=== PATIENT | female | born 1980 | race Caucasian/White ===

== ENCOUNTER 2025-05-19 01:21 | Emergency (ER) | payer MEDICARE, SELFPAY ==
[2025-05-19] VITALS (8 sets, daily range): BP systolic 96–131; BP diastolic 68–92; PULSE 83–113; RESP 18; TEMP 36.4–37.9; O2SAT 95–100; BMI 27.2
--- NOTE | 2025-05-19 01:45 | XR_ITS ---
Examination: CT abdomen and pelvis without contrast. Coronal 3-D reconstructions. Sagittal 2-D reconstructions. Date and time of exam:May 19, 2025, 0315 hours INDICATIONS: Left back and flank pain beginning 3 days ago CTDI: vol (mGy): 6.61 DLP: (mGycm): 362 Technique: Axial images of the abdomen have been obtained, 3 mm slice thickness Intravenous contrast material has not been administered. Low dose protocols were performed. One or more of the following dose reduction techniques were used; automated exposure control, adjustment of the mA and/or KV according to patient size, use of iterative reconstruction technique. Findings: No focal liver or splenic lesions No gallstones No pancreatic or adrenal mass Bilateral renal calculi, the largest right kidney 6 mm Moderate left hydronephrosis, 8 mm mid left ureteral calculus No bowel obstruction No bladder mass IMPRESSION: Moderate left hydronephrosis secondary to 8 mm mid left ureteral calculus
--- NOTE | 2025-05-19 01:46 | EDRME_ITS ---
[facility] Arrival date/time: 05/19/25 01:21 44F with history of drug use presents to ED with several days of L-sided flank pain and dysuria, as well as fevers/chills. Chief Complaint: Back Pain/Injury Vital signs: Vital Signs Temperature 100.2 F 05/19/25 01:35 Pulse Rate 113 H 05/19/25 01:35 Respiratory Rate 18 05/19/25 01:35 Blood Pressure 113/81 05/19/25 01:35 Pulse Oximetry (%) 97 05/19/25 01:35 Oxygen Delivery Method Room Air 05/19/25 01:35
[2025-05-19] MEDS: ONDANSETRON ODT 4 MG TABRAP PO (01:58)
[2025-05-19] MEDS: KETOROLAC INJ 60 MG/2 ML VIAL IM (01:58)
[2025-05-19 02:12] LABS: Lactate (Lactic Acid) 1.7 mMol/L (0.4-2.0)
[2025-05-19 02:20] LABS: Basophils # (Auto) 0.1 Thou/mm3 (0.0-0.2); Basophils % (Auto) 1 % (0-2.5); Eosinophils # (Auto) 0.1 Thou/mm3 (0.0-0.5); Eosinophils % (Auto) 1 % (0-10); Hematocrit 36.2 % (36.0-46.0); Hemoglobin 12.6 g/dL (12.0-16.0); Immature Granulocytes Auto 0.07 Thou/mm3 (0.00-0.00); Lymphocytes # (Auto) 1.2 Thou/mm3 (1.0-4.8); Lymphocytes % (Auto) 10 % (10-50); Mean Corpuscular HGB Conc 34.8 g/dl (31.0-37.0); Mean Corpuscular Hemoglobin 32.4 pg (25.0-35.0); Mean Corpuscular Volume 93 fL (80-100); Monocytes # (Auto) 1.3 Thou/mm3 (0.0-0.8); Monocytes % (Auto) 10 % (0-12); Neutrophils # (Auto) 9.6 Thou/mm3 (1.8-7.7); Neutrophils % (Auto) 78 % (37-80); Nucleated Red Blood Cell # 0.00 Thou/mm3 (0.00-0.00); Nucleated Red Blood Cell % 0 /100 WBC (0); Platelet Count 208 Thou/mm3 (140-440); RDW Standard Deviation 49.7 fL (36.4-46.3); Red Blood Count 3.89 Miln/mm3 (4.00-5.20); White Blood Count 12.2 Thou/mm3 (3.6-11.0)
[2025-05-19 02:40] LABS: Alanine Aminotransferase 11 U/L (10-49); Albumin, Serum 4.2 gm/dL (3.5-5.0); Albumin/Globulin Ratio 1.5 (1.2-2.2); Alkaline Phosphatase 95 U/L (46-116); Anion Gap 7 (7-16); Aspartate Amino Transferase 11 U/L (0-34); BUN/Creatinine Ratio 10 Ratio (12-20); Bilirubin,Total 1.0 mg/dL (0.3-1.2); Blood Urea Nitrogen 11 mg/dL (9-23); Calcium 9.0 mg/dL (8.3-10.6); Calcium (Corrected) 9.0 mg/dL (8.5-10.1); Carbon Dioxide 22.8 mMol/L (20.0-31.0); Chloride 103 mMol/L (98-107); Creatinine (Component) 1.1 mg/dL (0.6-1.3); Estimated Creatinine Clearance 51.9 mL/min (>60); Globulin 2.8 gm/dL (2.3-3.5); Glucose 114 mg/dL (74-106); Lipase 33 U/L (12-53); Osmolality,Calculated 266 (275-295); Potassium 4.4 mMol/L (3.4-5.1); Procalcitonin 0.57 ng/ml (0.0-0.49); Sodium 133 mMol/L (136-145); Total Protein 7.0 gm/dL (5.7-8.2); eGFR > 60 See Note
--- NOTE | 2025-05-19 04:02 | PRELIM_ITS ---
CT abdomen and pelvis without intravenous contrast (axial sections with sagittal and coronal reformats) May 19, 2025 0315 hours Clinical History: L Flank pain; r/o stone No prior study is available for comparison. Findings: There is a 8 x 5 mm obstructing calculus in the left mid ureter (axial images 155/256) causing mild hydroureteronephrosis and periureteric/perinephric fat stranding. There is a nonobstructing calculus in the right lower pole calyx, measuring 8 mm. The urinary bladder is incompletely distended and demonstrates mild wall thickening. The liver, gallbladder, spleen, pancreas and adrenals appear unremarkable on this noncontrast study. No evidence of bowel obstruction. The appendix is not visualized Trace free fluid is seen in the pelvis, likely physiologic .There is a right ovarian follicle, measuring 1 cm. No free air is seen. The osseous structures are unremarkable. The lung bases are clear. Impression: 8 x 5 mm obstructing calculus in the left mid ureter causing mild hydroureteronephrosis. Nonobstructing right renal calculus. Other findings as described above. Report Electronically Signed By: Elmer Trevino 05/19/2025 4:02:05 AM [EST]
[2025-05-19] MEDS: cefTRIAXone/D5w 1gm IV premix 1 GM/50 ML BAG IV (04:48)
--- NOTE | 2025-05-19 06:48 | PD.EDABDPN ---
ED Abdominal Pain RME/HPI General Chief Complaint: Back Pain/Injury Stated complaint: LEFT BACK PAIN RADIATING TO GROIN X3 DAY Time seen by provider: 05/19/25 06:49 Arrival date/time: 05/19/25 01:21 Limitations: no limitations RME / HPI RME / HPI narrative: 05/19/25 01:21 44F with history of drug use presents to ED with several days of L-sided flank pain and dysuria, as well as fevers/chills. DR. ARTHUR MAIN ED EVALUATION: 44 year old female presents to the Emergency Department with complaint of left flank pain today. Associated fever and chills at home. No other symptoms reported at this time. PMHx: Cerebral palsy and she was born premature. Also, history of asthma and she smokes cigarettes. Social Hx: Smokes cigarettes. Related Data Home Medications ?Medication ?Instructions ?Recorded ?Confirmed lorazepam 0.5 mg tablet 0.5 mg PO BID 07/19/20 07/19/20 Allergies Allergy/AdvReac Type Severity Reaction Status Date / Time red dye AdvReac Mild Difficulty Verified 05/19/25 01:23 Breathing Review of Systems Review of Systems Systems Reviewed: All systems reviewed, normal except as documented Past Medical History Past Medical History NEUROLOGIC: Positive Meningitis (Spinal meningitis (dx childhood) ) and Cerebral Palsy RESPIRATORY: Positive Asthma REPRODUCTIVE: Positive Previous Pregnancies MUSCULOSKELETAL: Positive Osteoporosis PSYCHO/SOCIAL: Positive Depression (Narcotic overdose (07/19/20)) Social History SMOKING STATUS: Current some day smoker ED Exam General Limitations: Present no limitations General appearance: Present alert and in distress (in mild pain distress) Head Head exam: Present atraumatic, normocephalic and normal inspection Eye Eye exam: Present normal appearance, PERRL and EOMI ENT ENT exam: Present normal exam, normal oropharynx and mucous membranes moist Neck Neck exam: Present normal inspection, full ROM and trachea midline Chest Chest inspection: Present normal inspection and symmetric chest wall rise Respiratory Respiratory exam: Present normal lung sounds bilaterally Cardiovascular Cardiovascular exam: Present regular rate, normal rhythm and normal heart sounds Abdominal Exam Abdominal exam: Present tenderness (left flank tenderness) and normal bowel sounds Extremities Exam Extremities exam: Present normal inspection and full ROM Back Exam Back exam: Present normal inspection and full ROM Neurological Exam Neurological exam: Present alert, oriented X3 and CN II-XII intact Psychiatric Psychiatric exam: Present normal affect and normal mood Skin Skin exam: Present warm, dry, intact and normal color Course Quality Measures none Orders Category Date Time Status Transfer to another facility [Transfer/Discharge] Stat Discharge 05/19/25 08:[address] abdomen pelvis wo con Stat Exams 05/19/25 01:45 Completed Blood Culture (Lab) Stat Lab 05/19/25 02:04 Received CBC Stat Lab 05/19/25 01:58 Completed CMP [Comprehensive Metabolic Panel] Stat Lab 05/19/25 01:58 Completed HCG Qualitative,Urine Stat Lab 05/19/25 06:21 Completed Lactate (Lactic Acid) Stat Lab 05/19/25 01:58 Completed Lipase Stat Lab 05/19/25 01:58 Completed Procalcitonin Stat Lab 05/19/25 01:58 Completed UA [Urinalysis] Stat Lab 05/19/25 06:21 Completed Urine Culture Stat Lab 05/19/25 06:21 Received HYDROmorphone INJ [Dilaudid Inj] Med 05/19/25 06:53 Discontinued 0.5 mg IVP X1 ONE Ketorolac Inj [Toradol Inj] Med 05/19/25 06:53 Discontinued 15 mg IVP X1 ONE Ketorolac Inj [Toradol Inj] Med 05/19/25 01:45 Discontinued 60 mg IM X1 ONE Ondansetron Inj [Zofran Inj] Med 05/19/25 06:53 Discontinued 4 mg IVP X1 ONE Ondansetron Odt [Zofran Odt] Med 05/19/25 01:45 Discontinued 4 mg PO X1 ONE Sodium Chloride 0.9% 1000 ml [Ns] 1,000 ml Med 05/19/25 04:24 Discontinued IV 999 mls/hr cefTRIAXone/D5w 1gm IV premix [Rocephin/D5w 1gm IV Med 05/19/25 04:25 Discontinued premix] 1 gm in 50 ml IV X1 Vital Signs Vital signs: Vital Signs Temperature 100.2 F 05/19/25 01:35 Pulse Rate 113 H 05/19/25 01:35 Respiratory Rate 18 05/19/25 01:35 Blood Pressure 113/81 05/19/25 01:35 Pulse Oximetry (%) 97 05/19/25 01:35 Oxygen Delivery Method Room Air 05/19/25 01:35 PROCEDURES: Smoking Cessation Time Spent Discussing Smoking Cessation w/Patient (min): 3 Patient Acknowledges Need for Cessation: Yes Additional Comments: The patient was counseled as to the multiple risks to their health from continued use of tobacco products. 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 The patient states they understand these risks, and also understand the options and resources available to them to help them stop smoking. Nicotine replacement therapy, local hotlines, and local resources were discussed as viable options for helping them stop their tobacco use. The total time spent counseling the patient regarding tobacco cessation was 3 minutes. Abdominal Pain MDM MDM Narrative MDM Narrative:: I, Ana Maria Gupta, am scribing for and in the presence of Dr. Arthur. Patient data External records reviewed:: [facility] previous records Clinical information provided by:: patient and spouse Social determinants that could affect healthcare access:: other (specify) (smokes cigarettes) Patient has the following chronic illnesses:: Cerebral palsy and she was born premature. Also, history of asthma and she smokes cigarettes. How is presenting disease/condition affected by chronic disease/condition?: uneffected by Evaluation data The following diagnostics were reviewed and interpreted by me:: lab results and radiology exam(s) Lab and/or radiology exams considered but not ordered:: none Interpretation Summary: [facility] [address] [place] [address] [employer] Preliminary Report Draft Patient: SARAY SMITH. Record#: [id number] Birthdate: 1980 Age/Sex: 44 / F Location: [facility] Attending Dr: Ordering Physician: Date of Service: Procedure(s): Accession Number(s): cc: ~ CT abdomen and pelvis without intravenous contrast (axial sections with sagittal and coronal reformats) May 19, 2025 0315 hours Clinical History: L Flank pain; r/o stone No prior study is available for comparison. Findings: There is a 8 x 5 mm obstructing calculus in the left mid ureter (axial images 155/256) causing mild hydroureteronephrosis and periureteric/perinephric fat stranding. There is a nonobstructing calculus in the right lower pole calyx, measuring 8 mm. The urinary bladder is incompletely distended and demonstrates mild wall thickening. The liver, gallbladder, spleen, pancreas and adrenals appear unremarkable on this noncontrast study. No evidence of bowel obstruction. The appendix is not visualized Trace free fluid is seen in the pelvis, likely physiologic .There is a right ovarian follicle, measuring 1 cm. No free air is seen. The osseous structures are unremarkable. The lung bases are clear. Impression: 8 x 5 mm obstructing calculus in the left mid ureter causing mild hydroureteronephrosis. Nonobstructing right renal calculus. Other findings as described above. Report Electronically Signed By: Elmer Valentinhgal 05/19/2025 4:02:05 AM [EST] Procedure(s): CT abdomen pelvis [facility] Accession Number(s): [id number] cc: Perry Goodrich MD; Jesus Li MD; Jaiden Kimble PA-C~ Examination: CT abdomen and pelvis without contrast. Coronal 3-D reconstructions. Sagittal 2-D reconstructions. Date and time of exam:May 19, 2025, 0315 hours INDICATIONS: Left back and flank pain beginning 3 days ago CTDI: vol (mGy): 6.61 DLP: (mGycm): 362 Technique: Axial images of the abdomen have been obtained, 3 mm slice thickness Intravenous contrast material has not been administered. Low dose protocols were performed. One or more of the following dose reduction techniques were used; automated exposure control, adjustment of the mA and/or KV according to patient size, use of iterative reconstruction technique. Findings: No focal liver or splenic lesions No gallstones No pancreatic or adrenal mass Bilateral renal calculi, the largest right kidney 6 mm Moderate left hydronephrosis, 8 mm mid left ureteral calculus No bowel obstruction No bladder mass IMPRESSION: Moderate left hydronephrosis secondary to 8 mm mid left ureteral calculus Dictated By: Perry Goodrich MD Medications / Prescriptions Medications or Prescriptions considered but not ordered:: none Medication administrations:: Medication Administration History Discontinued Medications Hydromorphone HCl (Hydromorphone Inj 2 Mg/Ml Vial) 0.5 mg IVP X1 ONE Stop: 05/19/25 06:54 Last Admin: 05/19/25 08:13 Dose: 0.5 mg Documented By: ER Sodium Chloride (Ns) 1,000 mls @ 999 mls/hr IV .Q1H1M ONE Stop: 05/19/25 05:24 Last Admin: 05/19/25 06:26 Dose: Not Given Documented By: SF Non-Admin Reason: Cancelled by Provider Ceftriaxone Sodium/Dextrose (Rocephin/D5w 1gm Iv Premix) 1 gm in 50 mls @ 100 mls/hr IV X1 ONE Stop: 05/19/25 04:54 Last Infusion: 05/19/25 05:18 Dose: Infused Documented By: Admin: 05/19/25 04:48 Dose: 100 mls/hr Documented By: SLADE Ketorolac Tromethamine (Ketorolac Inj 60 Mg/2 Ml Vial) 60 mg IM X1 ONE Stop: 05/19/25 01:46 Last Admin: 05/19/25 01:58 Dose: 60 mg Documented By: SM Ketorolac Tromethamine (Ketorolac Inj 30 Mg/Ml Vial) 15 mg IVP X1 ONE Stop: 05/19/25 06:54 Last Admin: 05/19/25 08:13 Dose: Not Given Documented By: ER Non-Admin Reason: Discontinued Ondansetron HCl (Ondansetron Odt 4 Mg Tabrap) 4 mg PO X1 ONE; Protocol Stop: 05/19/25 01:46 Last Admin: 05/19/25 01:58 Dose: 4 mg Documented By: SM Ondansetron HCl (Ondansetron Inj 2 Mg/Ml Inj 2 Ml) 4 mg IVP X1 ONE; Protocol Stop: 05/19/25 06:54 Last Admin: 05/19/25 08:14 Dose: 4 mg Documented By: ER see above Consultations Consultation(s) initiated? (list below): Yes Consultation #1 (Physician, Specialty, Details): Discussed test HPI, PMHx, lab, radiology results and/or management with Dr. Worley. Recommends the patient to be discharged, no need to transfer, and follow as an outpatient. Time: 14:46 Diagnosis Differential diagnosis abdominal pain: abdominal pain, calculus of kidney and other (UTI, sepsis) Most likely diagnosis given after review of the tests above:: Left kidney stone Moderate left hydronephrosis Left flank pain Admission Indicated Admission indicated?: not indicated Admission Request Was there a request for admission?: No Disposition Plan Disposition Plan: Discharge Discharge Attestation Discharge Attestation: The patient and all family members were given an opportunity to ask questions and understood the discharge instructions. Discharge instructions specifically effects, indications for sooner follow up or return to the emergency department, and the expected course of current diagnosis. Patient condition: Stable Discharge Plan Plan Patient Disposition: HOME (Self Care) Patient condition on transfer: Stable Prescriptions/Referrals Prescriptions/Med Rec: No Action lorazepam 0.5 mg Tablet 0.5 mg PO BID Referrals: Jesus Li MD [Primary Care Provider] - In 1 week Problem List Clinical Impression: Calculus of left kidney, Hydronephrosis of left kidney, Left flank pain Patient/Caregiver Discharge Instructions Print Language: Belarusian Stand Alone Forms: Theresa Award Info., Patient Portal Info Letter
[2025-05-19 07:32] LABS: Collection Type, Urine Clean Catch
[2025-05-19 07:51] LABS: Bacteria,Urine Rare; Bilirubin,Urine Negative (Negative); Blood,Urine Negative (Negative); Color,Urine Yellow (Lt Yel-Yel); Glucose, Urine Negative (Negative); Hyaline Casts,Urine < 1 /hpf (0-1); Ketones,Urine 1+ (Negative); Leukocyte Esterase,Urine Positive (Negative); Nitrite,Urine Negative (Negative); PH,Urine 6.0 (5.0-7.0); Protein,Urine 1+ (Neg - Trace); RBC,Urine 3 /hpf (0-3); Specific Gravity,Urine 1.027 (1.001-1.035); Squamous Epithelial Cell,Urine 17 /hpf (0-5); Urobilinogen,Urine 3.0 mg/dL (0.0-1.0); WBC,Urine 63 /hpf (0-5)
[2025-05-19 07:55] LABS: Clarity,Urine Hazy (Clear/Hazy)
[2025-05-19] MEDS: HYDROmorphone INJ 2 MG/ML VIAL 0.5 MG IVP (08:13)
[2025-05-19] MEDS: ONDANSETRON INJ 2 MG/ML INJ 2 ML 4 MG IVP (08:14)
--- NOTE | 2025-05-19 08:19 | PC.CC ---
Addendum entered by Sowmya Gibson RN 05/19/25 13:51: Dana from [facility] called back and per Dr. Monroy patient does not need to be transferred for any Urological intervention, patient can be dc home on antibiotics and instructed to return if fever develops, Dr. Bryant made aware, per Dr. Bryant transfer is cancelled Addendum entered by Sowmya Gibson RN 05/19/25 12:16: Anna from [facility] called back at this time and got clinicals will wait for call back Addendum entered by Sowmya Gibson RN 05/19/25 10:44: Spoke to Fletcher at [facility] he states they are still waiting for RN to review case Original Note: Spoke to Tristin at [facility], facesheet faxed, will wait for call back
--- NOTE | 2025-05-19 08:20 | PC.NURSE ---
Patient came to ED due bilateral lower back pain radiating to lower abdomen X2 days. POC updated patient resting comfortably in [facility]. Call light at reach.
[2025-05-19 10:30] LABS: HCG Qualitative,Urine Negative
--- NOTE | 2025-05-19 13:52 | PC.CC ---
Addendum entered by Sowmya Gibson RN 05/19/25 14:40: Anna from [facility] called back and states per Dr. Monroy patient can be discharged home with abx, if patien has a fever greater then 100.4 to encourage patient to return to ER preferably one in the [place] area. Dr. Bryant made aware. Original Note: [id number]- Dana from [facility] called back and got clinicals [id number]- facesheet faxed 0815- Spoke to Tristin at [facility] transfer enter, will wait for nurse to call back
== END 2025-05-19 15:35 | disposition home or self-care (01) ==
PROVIDERS: Physician Assistant; Emergency Provider Family Medicine; PCP Family Medicine
DX: N13.2 Hydronephrosis with renal and ureteral calculous obstruction (principal); F17.210 Nicotine dependence, cigarettes, uncomplicated; G80.9 Cerebral palsy, unspecified; J45.909 Unspecified asthma, uncomplicated
CPT/HCPCS: 36415; 74176; 80053; 81001; 81025; 83605; 83690; 84145; 85025; 87040; 87086; 96365; 96372; 96375; 99284; J0696; J1171; J1885; J2405; Q0162